=== PATIENT | male | born 1975 | race Hispanic/Latino ===

== ENCOUNTER 2020-02-06 16:51 | Inpatient (IN) | payer BC, OTHER ==
[~2020-02-06] VITALS: Ht 175.3 cm; Wt 90.7 kg
[2020-02-06] MEDS ORDERED: ACETAMINOPHEN 325 MG TAB ONE (17:11)
[2020-02-06 17:38] LABS: EOSINOPHILS % (AUTO) 1.4 % (0.0-8.0); HEMATOCRIT 39.2 % (42-54); LYMPHOCYTES % (AUTO) 5.2 % (21.0-51.0); MEAN CORPUSCULAR HGB CONC 31.9 g/dL (32.0-36.0); MEAN CORPUSCULAR VOLUME 78.2 fL (79-99); MONOCYTES % (AUTO) 6.6 % (3.0-13.0); NEUTROPHILS % (AUTO) 86.5 % (40.0-77.0); PLATELET COUNT (AUTO) 252 K/uL (130-400); RED BLOOD CELL COUNT(AUTO) 5.01 MIL/uL (4.50-6.20); RED CELL DISTRIBUTION WIDTH 17.4 % (11.0-15.5); WHITE BLOOD COUNT (AUTO) 6.4 K/uL (4.8-10.8)
[2020-02-06 17:50] LABS: INR 0.98 (0.85-1.15); PARTIAL THROMBOPLASTIN TIME 27.7 SEC (26.3-35.5); PROTHROMBIN TIME 10.6 SEC (9.6-11.6)
[2020-02-06 17:57] LABS: B-TYPE NATRIURETIC PEPTIDE 18 pg/mL (0-100)
[2020-02-06 18:22] LABS: CREATININE 1.3 mg/dL (0.5-1.5); POTASSIUM 3.9 mmol/L (3.5-5.1)
[2020-02-06 18:26] LABS: ALBUMIN 3.5 g/dL (3.5-5.0); BILIRUBIN,TOTAL 0.2 mg/dL (0.2-1.0); CRP QUANTITATIVE 85.9 mg/L (0.00-9.0); TOTAL PROTEIN, SERUM 7.9 g/dL (6.0-8.3)
[2020-02-06] MEDS ORDERED: LORAZEPAM 2 MG/ML 1 ML VIAL ONE (21:38)
[2020-02-06] MEDS ORDERED: DOXYCYCLINE 100MG+NS 250ML IV SCH (22:45)
[2020-02-06] MEDS ORDERED: ERGOCALCIFEROL (VITAMIN D2) 50,000 UNIT CAPSULE PO ONE (22:45)
[2020-02-06] MEDS ORDERED: GUAIFENESIN-DM 200/20 MG 10 ML PO PRN (23:30)
[2020-02-06] MEDS ORDERED: ONDANSETRON HCL 4 MG/2 ML VIAL IV PRN (23:30)
[2020-02-06] MEDS ORDERED: ASPIRIN 325MG EC TAB 325 MG TABLET.DR PO SCH (23:30)
[2020-02-06] MEDS ORDERED: ACETAMINOPHEN 325 MG TAB PO PRN ×2 (23:30)
[2020-02-07 00:26] LABS: ABG BASE EXCESS 0.5 mmol/L (-2.0-3.0); ABG HCO3 23.4 mmol/L (21.0-28.0); ABG OXYGEN SATURATION 95.6 % (95.0-99.0); ABG PCO2 33 mmHg (35-48)
[2020-02-07] MEDS ORDERED: ERGOCALCIFEROL (VITAMIN D2) 50,000 UNIT CAPSULE ONE (01:09)
[2020-02-07] MEDS ORDERED: DOXYCYCLINE HYCLATE 100 MG TABLET PO ONE ×2 (01:09→11:04)
[2020-02-07] MEDS ORDERED: ASPIRIN 325 MG TABLET ONE (01:10)
[2020-02-07] MEDS ORDERED: CEFTRIAXONE SODIUM 1 GM ONE ×2 (01:10→11:04)
[2020-02-07] MEDS ORDERED: ASPIRIN 325MG EC TAB 325 MG TABLET.DR PO ONE (01:39)
[2020-02-07] MEDS ORDERED: NITROGLYCERIN 1GM/1 INCH PACKET TD ONE ×2 (02:11→21:50)
[2020-02-07] MEDS ORDERED: NITROGLYCERIN 1GM/1 INCH PACKET TD SCH (06:00)
[2020-02-07 06:19] LABS: HEMATOCRIT 39.4 % (42-54); LYMPHOCYTES % (AUTO) 18.2 % (21.0-51.0); MEAN CORPUSCULAR HEMOGLOBIN 25.5 pg (27.0-33.0); MEAN CORPUSCULAR HGB CONC 32.5 g/dL (32.0-36.0); MEAN CORPUSCULAR VOLUME 78.6 fL (79-99); MONOCYTES % (AUTO) 7.6 % (3.0-13.0); NEUTROPHILS % (AUTO) 73.9 % (40.0-77.0); PLATELET COUNT (AUTO) 262 K/uL (130-400); RED BLOOD CELL COUNT(AUTO) 5.01 MIL/uL (4.50-6.20); RED CELL DISTRIBUTION WIDTH 17.8 % (11.0-15.5); WHITE BLOOD COUNT (AUTO) 5.9 K/uL (4.8-10.8)
[2020-02-07 07:29] LABS: ALBUMIN 3.2 g/dL (3.5-5.0); BILIRUBIN,TOTAL 0.3 mg/dL (0.2-1.0); CRP QUANTITATIVE 89.4 mg/L (0.00-9.0); POTASSIUM 3.3 mmol/L (3.5-5.1); TOTAL PROTEIN, SERUM 7.2 g/dL (6.0-8.3)
[2020-02-07 07:38] LABS: TROPONIN I 0.06 ng/mL (0.00-0.06)
[2020-02-07] MEDS ORDERED: ASCORBIC ACID 500 MG TAB ONE ×2 (08:08→13:00)
[2020-02-07] MEDS ORDERED: ZINC SULFATE 220 CAPSULE ONE (08:09)
[2020-02-07] MEDS ORDERED: METHYLPREDNISOLONE SOD SUCC 40MG/ML 1ML ONE ×2 (08:09→16:19)
[2020-02-07] MEDS ORDERED: FAMOTIDINE/PF 20 MG/2 ML VIAL IV ONE ×2 (08:10→21:51)
[2020-02-07] MEDS ORDERED: ENOXAPARIN SODIUM 60 MG/0.6 ML SQ ONE (08:42)
[2020-02-07] MEDS: ASPIRIN 81MG TAB.CHEW PO SCH (09:00)
[2020-02-07] MEDS: FAMOTIDINE/PF 20 MG/2 ML VIAL IV SCH ×2 (09:00→21:00)
[2020-02-07] MEDS: ASCORBIC ACID 500 MG TAB PO SCH (09:00)
[2020-02-07] MEDS: ZINC SULFATE 220 CAPSULE PO SCH (09:00)
[2020-02-07] MEDS: ENOXAPARIN SODIUM 40 MG/0.4 ML SYRINGE SQ SCH (09:00)
[2020-02-07] MEDS: METHYLPREDNISOLONE SOD SUCC 40MG/ML 1ML IVP SCH ×2 (09:00→17:00)
[2020-02-07] MEDS ORDERED: ACETAMINOPHEN 325 MG TAB ONE (09:11)
[2020-02-07] MEDS ORDERED: SODIUM CHLORIDE 0.9% 100 ML IV ONE (11:09)
[2020-02-07] MEDS ORDERED: CEFTRIAXONE SODIUM 1 GM IVP SCH (13:00)
[2020-02-07] MEDS ORDERED: DOXYCYCLINE 100MG+NS 250ML 250 ML IV SCH (13:00)
[2020-02-07] MEDS ORDERED: INSULIN HUMULIN R 100 UNIT/ML 3ML ONE ×2 (17:45→22:17)
[2020-02-07] MEDS: FUROSEMIDE 10 MG/ML 2ML VIAL IV SCH (18:00)
[2020-02-07] MEDS ORDERED: DOXYCYCLINE 100MG+NS 250ML 250 ML IV ONE (21:51)
[2020-02-07] MEDS ORDERED: ASPIRIN 81MG TAB.CHEW ONE (21:52)
[2020-02-07] MEDS ORDERED: FUROSEMIDE 10 MG/ML 2ML VIAL ONE (21:53)
[2020-02-08] MEDS ORDERED: CEFTRIAXONE SODIUM 1 GM ONE (00:05)
[2020-02-08] MEDS ORDERED: METHYLPREDNISOLONE SOD SUCC 40MG/ML 1ML ONE ×4 (00:06→21:30)
[2020-02-08] MEDS: METHYLPREDNISOLONE SOD SUCC 40MG/ML 1ML IVP SCH ×3 (01:00→17:00)
[2020-02-08 04:56] LABS: HEMATOCRIT 40.4 % (42-54); LYMPHOCYTES % (AUTO) 3.9 % (21.0-51.0); MEAN CORPUSCULAR HGB CONC 32.2 g/dL (32.0-36.0); MEAN CORPUSCULAR VOLUME 77.7 fL (79-99); MONOCYTES % (AUTO) 3.3 % (3.0-13.0); NEUTROPHILS % (AUTO) 92.5 % (40.0-77.0); PLATELET COUNT (AUTO) 269 K/uL (130-400); RED CELL DISTRIBUTION WIDTH 17.1 % (11.0-15.5); WHITE BLOOD COUNT (AUTO) 10.8 K/uL (4.8-10.8)
[2020-02-08 05:26] LABS: ALBUMIN 3.1 g/dL (3.5-5.0); BILIRUBIN,TOTAL 0.5 mg/dL (0.2-1.0); CREATININE 0.9 mg/dL (0.5-1.5); CRP QUANTITATIVE 154.6 mg/L (0.00-9.0); POTASSIUM 4.1 mmol/L (3.5-5.1); TOTAL PROTEIN, SERUM 7.5 g/dL (6.0-8.3)
[2020-02-08] MEDS ORDERED: NITROGLYCERIN 1GM/1 INCH PACKET TD ONE ×2 (05:34→07:29)
[2020-02-08] MEDS: FUROSEMIDE 10 MG/ML 2ML VIAL IV SCH ×2 (06:00→18:00)
[2020-02-08] MEDS ORDERED: ASPIRIN 81MG TAB.CHEW ONE (07:28)
[2020-02-08] MEDS ORDERED: DOXYCYCLINE HYCLATE 100 MG TABLET PO ONE (07:28)
[2020-02-08] MEDS ORDERED: ASCORBIC ACID 500 MG TAB ONE (07:28)
[2020-02-08] MEDS ORDERED: FUROSEMIDE 10 MG/ML 2ML VIAL ONE (07:29)
[2020-02-08] MEDS ORDERED: ZINC SULFATE 220 CAPSULE ONE (07:29)
[2020-02-08] MEDS ORDERED: ENOXAPARIN SODIUM 40 MG/0.4 ML SYRINGE SQ ONE (07:29)
[2020-02-08] MEDS ORDERED: FAMOTIDINE/PF 20 MG/2 ML VIAL IV ONE ×2 (07:30→21:30)
[2020-02-08] MEDS: ENOXAPARIN SODIUM 40 MG/0.4 ML SYRINGE SQ SCH (09:00)
[2020-02-08] MEDS: ASPIRIN 81MG TAB.CHEW PO SCH (09:00)
[2020-02-08] MEDS: ZINC SULFATE 220 CAPSULE PO SCH (09:00)
[2020-02-08] MEDS: FAMOTIDINE/PF 20 MG/2 ML VIAL IV SCH ×2 (09:00→21:00)
[2020-02-08] MEDS: ASCORBIC ACID 500 MG TAB PO SCH (09:00)
[2020-02-08] MEDS ORDERED: INSULIN HUMULIN R 100 UNIT/ML 3ML ONE ×2 (10:29→17:26)
[2020-02-08] MEDS ORDERED: REMDESIVIR (INVESTIGATIONAL) 200 MG in SODIUM CHLORIDE 0.9% 250 ML IV SCH (16:15)
[2020-02-08] MEDS: AZITHROMYCIN 500MG+NS 250ML 250 ML IV SCH (16:30)
[2020-02-08] MEDS: ZOSYN 3.375GM+NS 50ML 50 ML IV SCH (16:30)
[2020-02-08] MEDS ORDERED: ZOSYN 3.375GM+NS 50ML 50 ML IV ONE (17:07)
[2020-02-08] MEDS ORDERED: ACETAMINOPHEN 325 MG TAB ONE (17:07)
[2020-02-08] MEDS ORDERED: AZITHROMYCIN 500MG+NS 250ML 250 ML IV ONE (17:07)
[2020-02-09] MEDS ORDERED: INSULIN HUMULIN R 100 UNIT/ML 3ML ONE ×2 (00:06→12:21)
[2020-02-09] MEDS: ZOSYN 3.375GM+NS 50ML 50 ML IV SCH ×3 (00:30→16:30)
[2020-02-09] MEDS: METHYLPREDNISOLONE SOD SUCC 40MG/ML 1ML IVP SCH ×2 (01:00→09:00)
[2020-02-09] MEDS ORDERED: LORAZEPAM 2 MG/ML 1 ML VIAL ONE (01:22)
[2020-02-09 04:30] LABS: ABG BASE EXCESS 3.8 mmol/L (-2.0-3.0); ABG OXYGEN SATURATION 92.5 % (95.0-99.0); ABG PCO2 41 mmHg (35-48)
[2020-02-09 04:43] LABS: BASOPHILS % (AUTO) 0.1 % (0.0-5.0); LYMPHOCYTES % (AUTO) 3.1 % (21.0-51.0); MEAN CORPUSCULAR HGB CONC 32.2 g/dL (32.0-36.0); MEAN CORPUSCULAR VOLUME 77.8 fL (79-99); MONOCYTES % (AUTO) 3.1 % (3.0-13.0); PLATELET COUNT (AUTO) 317 K/uL (130-400); RED BLOOD CELL COUNT(AUTO) 5.27 MIL/uL (4.50-6.20); RED CELL DISTRIBUTION WIDTH 17.1 % (11.0-15.5); WHITE BLOOD COUNT (AUTO) 14.4 K/uL (4.8-10.8)
[2020-02-09] MEDS ORDERED: METHYLPREDNISOLONE SOD SUCC 40MG/ML 1ML ONE ×3 (04:43→20:10)
[2020-02-09] MEDS ORDERED: ZOSYN 3.375GM+NS 50ML 50 ML IV ONE ×3 (04:46→20:11)
[2020-02-09 05:14] LABS: ALBUMIN 3.1 g/dL (3.5-5.0); BILIRUBIN,TOTAL 0.5 mg/dL (0.2-1.0); CREATININE 0.9 mg/dL (0.5-1.5); POTASSIUM 4.1 mmol/L (3.5-5.1)
[2020-02-09] MEDS ORDERED: FUROSEMIDE 10 MG/ML 2ML VIAL ONE ×2 (05:15→20:10)
[2020-02-09 05:34] LABS: HEMOGLOBIN A1C 7.2 % (4.0-6.0)
[2020-02-09] MEDS: FUROSEMIDE 10 MG/ML 2ML VIAL IV SCH ×2 (06:00→18:00)
[2020-02-09 06:22] LABS: CRP QUANTITATIVE 197.2 mg/L (0.00-9.0)
[2020-02-09] MEDS: [UNRECOGNIZED DRUG - OTHER] MISC SCH ×3 (07:15→23:15)
[2020-02-09] MEDS: INSULIN HUMULIN R 100 UNIT/ML 3ML SQ SCH ×4 (07:30→21:00)
[2020-02-09] MEDS ORDERED: ASCORBIC ACID 500 MG TAB ONE (07:38)
[2020-02-09] MEDS ORDERED: ZINC SULFATE 220 CAPSULE ONE (07:38)
[2020-02-09] MEDS ORDERED: ASPIRIN 81MG TAB.CHEW ONE (07:38)
[2020-02-09] MEDS ORDERED: ENOXAPARIN SODIUM 40 MG/0.4 ML SYRINGE SQ ONE (07:38)
[2020-02-09] MEDS ORDERED: FAMOTIDINE/PF 20 MG/2 ML VIAL IV ONE ×2 (07:39→20:23)
[2020-02-09] MEDS: ZINC SULFATE 220 CAPSULE PO SCH (09:00)
[2020-02-09] MEDS: ASCORBIC ACID 500 MG TAB PO SCH (09:00)
[2020-02-09] MEDS: ASPIRIN 81MG TAB.CHEW PO SCH (09:00)
[2020-02-09] MEDS ORDERED: PHARMACY COMMUNICATION**REMDESIVIR MISC SCH (09:00)
[2020-02-09] MEDS: FAMOTIDINE/PF 20 MG/2 ML VIAL IV SCH ×2 (09:00→21:00)
[2020-02-09] MEDS ORDERED: INSULIN GLARGINE 100 UNITS/ML 10 ML VIAL SQ SCH (09:00)
[2020-02-09] MEDS: ENOXAPARIN SODIUM 40 MG/0.4 ML SYRINGE SQ SCH (09:00)
[2020-02-09] MEDS ORDERED: REMDESIVIR (INVESTIGATIONAL) 100 MG in SODIUM CHLORIDE 0.9% 250 ML IV SCH (09:00)
[2020-02-09] MEDS ORDERED: FAMOTIDINE 20MG TAB 20 MG TAB ONE (09:58)
[2020-02-09] MEDS: AZITHROMYCIN 500MG+NS 250ML 250 ML IV SCH (16:30)
[2020-02-09] MEDS ORDERED: REMDESIVIR (INVESTIGATIONAL) 200 MG in SODIUM CHLORIDE 0.9% 250 ML IV ONE (17:30)
[2020-02-09] MEDS ORDERED: AZITHROMYCIN 500MG+NS 250ML 250 ML IV ONE (20:22)
[2020-02-09] MEDS ORDERED: ALBUTEROL INHALER 90MCG/INH IH ONE (20:22)
[2020-02-10] MEDS: ZOSYN 3.375GM+NS 50ML 50 ML IV SCH ×3 (00:30→17:57)
[2020-02-10] MEDS: METHYLPREDNISOLONE SOD SUCC 40MG/ML 1ML IVP SCH ×4 (01:00→18:41)
[2020-02-10] MEDS ORDERED: METHYLPREDNISOLONE SOD SUCC 125MG/2ML VIAL ONE (04:37)
[2020-02-10] MEDS ORDERED: ZOSYN 3.375GM+NS 50ML 0 ML IV ONE (04:37)
[2020-02-10 04:55] LABS: ABG BASE EXCESS 1.5 mmol/L (-2.0-3.0); ABG HCO3 24.9 mmol/L (21.0-28.0); ABG OXYGEN SATURATION 91.4 % (95.0-99.0); ABG PCO2 36 mmHg (35-48)
[2020-02-10] MEDS ORDERED: ALPRAZOLAM 0.25 MG TABLET ONE (05:54)
[2020-02-10] MEDS: FUROSEMIDE 10 MG/ML 2ML VIAL IV SCH ×2 (06:00→17:55)
[2020-02-10 06:03] LABS: HEMATOCRIT 40.7 % (42-54); LYMPHOCYTES % (AUTO) 5.9 % (21.0-51.0); MEAN CORPUSCULAR HEMOGLOBIN 24.7 pg (27.0-33.0); MEAN CORPUSCULAR HGB CONC 31.7 g/dL (32.0-36.0); MONOCYTES % (AUTO) 3.3 % (3.0-13.0); NEUTROPHILS % (AUTO) 90.1 % (40.0-77.0); PLATELET COUNT (AUTO) 319 K/uL (130-400); RED BLOOD CELL COUNT(AUTO) 5.22 MIL/uL (4.50-6.20); RED CELL DISTRIBUTION WIDTH 16.9 % (11.0-15.5); WHITE BLOOD COUNT (AUTO) 10.5 K/uL (4.8-10.8)
[2020-02-10 06:36] LABS: ALBUMIN 2.7 g/dL (3.5-5.0); BILIRUBIN,DIRECT 0.2 mg/dL (0.0-0.3); BILIRUBIN,TOTAL 0.6 mg/dL (0.2-1.0); CREATININE 0.8 mg/dL (0.5-1.5); POTASSIUM 3.9 mmol/L (3.5-5.1); TOTAL PROTEIN, SERUM 7.4 g/dL (6.0-8.3)
[2020-02-10] MEDS: [UNRECOGNIZED DRUG - OTHER] MISC SCH ×3 (07:15→23:15)
[2020-02-10] MEDS: INSULIN HUMULIN R 100 UNIT/ML 3ML SQ SCH ×4 (07:30→21:36)
[2020-02-10] MEDS ORDERED: ZINC SULFATE 220 CAPSULE ONE (08:18)
[2020-02-10] MEDS ORDERED: ASPIRIN 81MG TAB.CHEW ONE (08:18)
[2020-02-10] MEDS ORDERED: ENOXAPARIN SODIUM 40 MG/0.4 ML SYRINGE SQ ONE (08:19)
[2020-02-10] MEDS ORDERED: FAMOTIDINE/PF 20 MG/2 ML VIAL IV ONE (08:19)
[2020-02-10] MEDS: ASPIRIN 81MG TAB.CHEW PO SCH (09:00)
[2020-02-10] MEDS: ZINC SULFATE 220 CAPSULE PO SCH (09:00)
[2020-02-10] MEDS: ENOXAPARIN SODIUM 40 MG/0.4 ML SYRINGE SQ SCH (09:00)
[2020-02-10] MEDS: ASCORBIC ACID 500 MG TAB PO SCH (09:00)
[2020-02-10] MEDS: FAMOTIDINE/PF 20 MG/2 ML VIAL IV SCH ×2 (09:00→21:33)
[2020-02-10 11:10] LABS: CRP QUANTITATIVE 129.6 mg/L (0.00-9.0)
[2020-02-10] MEDS ORDERED: METHYLPREDNISOLONE SOD SUCC 40MG/ML 1ML ONE (11:24)
[2020-02-10] MEDS ORDERED: ZOSYN 3.375 GM IV ONE (11:25)
[2020-02-10] MEDS ORDERED: [UNRECOGNIZED DRUG - OTHER] IV ONE (11:25)
[2020-02-10] MEDS ORDERED: INSULIN HUMULIN R 100 UNIT/ML 3ML ONE (12:17)
[2020-02-10] MEDS ORDERED: REMDESIVIR (INVESTIGATIONAL) 100 MG in SODIUM CHLORIDE 0.9% 250 ML IV SCH (17:30)
[2020-02-10 19:00] VITALS: BP 135/80
[2020-02-10 20:00] VITALS: BP 121/76
[2020-02-10] MEDS ORDERED: INSULIN GLARGINE 100 UNITS/ML 10 ML VIAL SQ SCH (21:00)
[2020-02-10] MEDS: ALPRAZOLAM 0.25 MG TABLET PO PRN (21:34)
[2020-02-10] MEDS: AZITHROMYCIN 500MG+NS 250ML 250 ML IV SCH (23:58)
[2020-02-11 00:19] VITALS: BP 126/94
[2020-02-11] MEDS: METHYLPREDNISOLONE SOD SUCC 40MG/ML 1ML IVP SCH ×3 (01:00→17:17)
[2020-02-11] MEDS: ZOSYN 3.375GM+NS 50ML 50 ML IV SCH ×3 (03:21→21:00)
[2020-02-11 03:24] VITALS: BP 134/90
[2020-02-11 04:25] LABS: ABG HCO3 32.2 mmol/L (21.0-28.0); ABG OXYGEN SATURATION 96.7 % (95.0-99.0); ABG PCO2 47 mmHg (35-48)
[2020-02-11] MEDS: [UNRECOGNIZED DRUG - OTHER] MISC SCH ×3 (05:52→23:15)
[2020-02-11] MEDS: INSULIN HUMULIN R 100 UNIT/ML 3ML SQ SCH ×4 (05:53→21:45)
[2020-02-11] MEDS: FUROSEMIDE 10 MG/ML 2ML VIAL IV SCH ×2 (06:25→17:17)
[2020-02-11 06:38] LABS: BASOPHILS % (AUTO) 0.1 % (0.0-5.0); LYMPHOCYTES % (AUTO) 6.6 % (21.0-51.0); MEAN CORPUSCULAR HEMOGLOBIN 25.7 pg (27.0-33.0); MEAN CORPUSCULAR HGB CONC 32.3 g/dL (32.0-36.0); MEAN CORPUSCULAR VOLUME 79.4 fL (79-99); MONOCYTES % (AUTO) 2.9 % (3.0-13.0); NEUTROPHILS % (AUTO) 89.9 % (40.0-77.0); PLATELET COUNT (AUTO) 319 K/uL (130-400); RED BLOOD CELL COUNT(AUTO) 4.91 MIL/uL (4.50-6.20); RED CELL DISTRIBUTION WIDTH 16.5 % (11.0-15.5); WHITE BLOOD COUNT (AUTO) 10.2 K/uL (4.8-10.8)
[2020-02-11 06:58] LABS: ALBUMIN 2.5 g/dL (3.5-5.0); BILIRUBIN,TOTAL 0.5 mg/dL (0.2-1.0); POTASSIUM 4.4 mmol/L (3.5-5.1); TOTAL PROTEIN, SERUM 6.8 g/dL (6.0-8.3)
[2020-02-11] MEDS: FAMOTIDINE/PF 20 MG/2 ML VIAL IV SCH ×2 (08:18→21:44)
[2020-02-11] MEDS: ZINC SULFATE 220 CAPSULE PO SCH (08:20)
[2020-02-11] MEDS: ASCORBIC ACID 500 MG TAB PO SCH (08:20)
[2020-02-11] MEDS: ENOXAPARIN SODIUM 40 MG/0.4 ML SYRINGE SQ SCH ×2 (08:21→21:46)
[2020-02-11] MEDS: ASPIRIN 81MG TAB.CHEW PO SCH (08:21)
[2020-02-11 08:42] VITALS: BP 122/80
[2020-02-11] MEDS ORDERED: ENOXAPARIN SODIUM 40 MG/0.4 ML SYRINGE SQ SCH (09:00)
[2020-02-11 11:11] VITALS: BP 134/91
[2020-02-11 16:56] VITALS: BP 145/88
[2020-02-11] MEDS ORDERED: BENZONATATE 100 MG CAPSULE PO PRN (17:30)
[2020-02-11] MEDS ORDERED: GUAIFENESIN-CODEINE 5 ML SYRUP PO PRN (17:30)
[2020-02-11 19:30] VITALS: BP 136/89
[2020-02-11] MEDS: GUAIFENESIN 600 MG TABLET.ER PO SCH (21:44)
[2020-02-11] MEDS: INSULIN GLARGINE 100 UNITS/ML 10 ML VIAL SQ SCH (21:46)
[2020-02-11] MEDS: ALPRAZOLAM 0.25 MG TABLET PO PRN (21:47)
[2020-02-11] MEDS: AZITHROMYCIN 500MG+NS 250ML 250 ML IV SCH (23:55)
[2020-02-12] VITALS: BP 126/86
[2020-02-12] MEDS: METHYLPREDNISOLONE SOD SUCC 40MG/ML 1ML IVP SCH ×3 (01:00→17:29)
[2020-02-12] MEDS: ZOSYN 3.375GM+NS 50ML 50 ML IV SCH ×3 (03:41→21:00)
[2020-02-12 04:00] VITALS: BP 127/62
[2020-02-12 05:33] LABS: BASOPHILS % (AUTO) 0.2 % (0.0-5.0); HEMATOCRIT 38.5 % (42-54); LYMPHOCYTES % (AUTO) 5.4 % (21.0-51.0); MEAN CORPUSCULAR HEMOGLOBIN 24.9 pg (27.0-33.0); MEAN CORPUSCULAR HGB CONC 31.9 g/dL (32.0-36.0); MEAN CORPUSCULAR VOLUME 77.9 fL (79-99); MONOCYTES % (AUTO) 2.5 % (3.0-13.0); NEUTROPHILS % (AUTO) 91.3 % (40.0-77.0); PLATELET COUNT (AUTO) 363 K/uL (130-400); RED BLOOD CELL COUNT(AUTO) 4.94 MIL/uL (4.50-6.20); RED CELL DISTRIBUTION WIDTH 15.9 % (11.0-15.5); WHITE BLOOD COUNT (AUTO) 10.8 K/uL (4.8-10.8)
[2020-02-12] MEDS: [UNRECOGNIZED DRUG - OTHER] MISC SCH ×3 (05:57→22:31)
[2020-02-12 06:02] LABS: ALBUMIN 2.5 g/dL (3.5-5.0); BILIRUBIN,TOTAL 0.5 mg/dL (0.2-1.0); CREATININE 0.8 mg/dL (0.5-1.5); CRP QUANTITATIVE 33.4 mg/L (0.00-9.0); TOTAL PROTEIN, SERUM 6.8 g/dL (6.0-8.3)
[2020-02-12] MEDS: FUROSEMIDE 10 MG/ML 2ML VIAL IV SCH ×2 (06:26→18:16)
[2020-02-12] MEDS: INSULIN HUMULIN R 100 UNIT/ML 3ML SQ SCH ×5 (06:33→21:00)
[2020-02-12] MEDS: ASPIRIN 81MG TAB.CHEW PO SCH (07:37)
[2020-02-12] MEDS: ZINC SULFATE 220 CAPSULE PO SCH ×2 (07:37→09:00)
[2020-02-12] MEDS: GUAIFENESIN 600 MG TABLET.ER PO SCH ×2 (07:39→22:10)
[2020-02-12] MEDS: ALPRAZOLAM 0.25 MG TABLET PO PRN ×2 (07:39→23:21)
[2020-02-12] MEDS: ASCORBIC ACID 500 MG TAB PO SCH (07:40)
[2020-02-12] MEDS: FAMOTIDINE/PF 20 MG/2 ML VIAL IV SCH ×2 (07:40→22:10)
[2020-02-12] MEDS: INSULIN GLARGINE 100 UNITS/ML 10 ML VIAL SQ SCH ×2 (07:45→21:00)
[2020-02-12 08:00] VITALS: BP 130/61
[2020-02-12 11:00] VITALS: BP 130/77
[2020-02-12] MEDS: ENOXAPARIN SODIUM 40 MG/0.4 ML SYRINGE SQ SCH ×2 (11:04→22:12)
[2020-02-12 16:00] VITALS: BP 144/88
[2020-02-12] MEDS: AZITHROMYCIN 500MG+NS 250ML 250 ML IV SCH (22:00)
[2020-02-12 22:19] VITALS: BP 123/81
[2020-02-12] MEDS ORDERED: SODIUM CHLORIDE 0.9% 500ML 500 ML IV ONE (23:32)
[2020-02-13 00:02] VITALS: BP 137/82
[2020-02-13] MEDS: METHYLPREDNISOLONE SOD SUCC 40MG/ML 1ML IVP SCH ×3 (01:09→17:07)
[2020-02-13] MEDS: ZOSYN 3.375GM+NS 50ML 50 ML IV SCH ×3 (04:23→20:49)
[2020-02-13 05:01] LABS: ABG BASE EXCESS 6.2 mmol/L (-2.0-3.0); ABG HCO3 30.7 mmol/L (21.0-28.0); ABG OXYGEN SATURATION 96.6 % (95.0-99.0); ABG PCO2 44 mmHg (35-48)
[2020-02-13] MEDS: FUROSEMIDE 10 MG/ML 2ML VIAL IV SCH ×2 (05:24→17:09)
[2020-02-13] MEDS: [UNRECOGNIZED DRUG - OTHER] MISC SCH ×3 (05:24→20:49)
[2020-02-13] MEDS: INSULIN HUMULIN R 100 UNIT/ML 3ML SQ SCH ×7 (05:41→20:48)
[2020-02-13 05:46] VITALS: BP 133/87
[2020-02-13 06:40] LABS: ALBUMIN 2.8 g/dL (3.5-5.0); BASOPHILS % (AUTO) 0.1 % (0.0-5.0); BILIRUBIN,TOTAL 0.6 mg/dL (0.2-1.0); CREATININE 0.8 mg/dL (0.5-1.5); CRP QUANTITATIVE 19.6 mg/L (0.00-9.0); HEMATOCRIT 40.5 % (42-54); LYMPHOCYTES % (AUTO) 5.1 % (21.0-51.0); MEAN CORPUSCULAR HEMOGLOBIN 25.4 pg (27.0-33.0); MEAN CORPUSCULAR HGB CONC 31.6 g/dL (32.0-36.0); MEAN CORPUSCULAR VOLUME 80.4 fL (79-99); MONOCYTES % (AUTO) 1.7 % (3.0-13.0); NEUTROPHILS % (AUTO) 92.6 % (40.0-77.0); PLATELET COUNT (AUTO) 384 K/uL (130-400); POTASSIUM 4.2 mmol/L (3.5-5.1); RED BLOOD CELL COUNT(AUTO) 5.04 MIL/uL (4.50-6.20); RED CELL DISTRIBUTION WIDTH 15.7 % (11.0-15.5); TOTAL PROTEIN, SERUM 7.1 g/dL (6.0-8.3)
[2020-02-13] MEDS ORDERED: MUPIROCIN OINTMENT 22 GM TUBE TP PRN (07:00)
[2020-02-13 08:45] VITALS: BP 116/74
[2020-02-13] MEDS: ZINC SULFATE 220 CAPSULE PO SCH (09:44)
[2020-02-13] MEDS: FAMOTIDINE/PF 20 MG/2 ML VIAL IV SCH ×2 (09:44→20:48)
[2020-02-13] MEDS: ALPRAZOLAM 0.25 MG TABLET PO PRN ×2 (09:44→20:54)
[2020-02-13] MEDS: ASCORBIC ACID 500 MG TAB PO SCH (09:45)
[2020-02-13] MEDS: GUAIFENESIN 600 MG TABLET.ER PO SCH ×2 (09:45→20:49)
[2020-02-13] MEDS: ASPIRIN 81MG TAB.CHEW PO SCH (09:46)
[2020-02-13] MEDS: ENOXAPARIN SODIUM 40 MG/0.4 ML SYRINGE SQ SCH ×2 (09:46→20:49)
[2020-02-13 11:00] VITALS: BP 109/75
[2020-02-13] MEDS: INSULIN GLARGINE 100 UNITS/ML 10 ML VIAL SQ SCH ×2 (11:59→20:50)
[2020-02-13] MEDS ORDERED: PHARMACY COMMUNICATION MISC SCH (15:45)
[2020-02-13 16:00] VITALS: BP 138/93
[2020-02-13] MEDS ORDERED: BACITRACIN 28.4 GM OINT TP PRN (18:45)
[2020-02-13 20:32] VITALS: BP 134/87
[2020-02-13] MEDS: AZITHROMYCIN 500MG+NS 250ML 250 ML IV SCH (22:00)
[2020-02-14 00:32] VITALS: BP 140/82
[2020-02-14] MEDS: METHYLPREDNISOLONE SOD SUCC 40MG/ML 1ML IVP SCH ×3 (01:04→17:15)
[2020-02-14 04:32] VITALS: BP 132/76
[2020-02-14 05:45] LABS: LACTATE DEHYDROGENASE 310 U/L (81-234)
[2020-02-14] MEDS: [UNRECOGNIZED DRUG - OTHER] MISC SCH ×3 (05:52→23:15)
[2020-02-14] MEDS: INSULIN HUMULIN R 100 UNIT/ML 3ML SQ SCH ×7 (05:52→21:00)
[2020-02-14] MEDS: FUROSEMIDE 10 MG/ML 2ML VIAL IV SCH ×2 (06:02→17:15)
[2020-02-14] MEDS: ZOSYN 3.375GM+NS 50ML 50 ML IV SCH ×3 (06:02→21:00)
[2020-02-14 08:00] VITALS: BP 133/87
[2020-02-14] MEDS: ZINC SULFATE 220 CAPSULE PO SCH (09:41)
[2020-02-14] MEDS: ASPIRIN 81MG TAB.CHEW PO SCH (09:41)
[2020-02-14] MEDS: GUAIFENESIN 600 MG TABLET.ER PO SCH ×2 (09:41→21:00)
[2020-02-14] MEDS: FAMOTIDINE/PF 20 MG/2 ML VIAL IV SCH ×2 (09:41→21:00)
[2020-02-14] MEDS: ASCORBIC ACID 500 MG TAB PO SCH (09:41)
[2020-02-14] MEDS: ALPRAZOLAM 0.25 MG TABLET PO PRN ×2 (09:41→23:08)
[2020-02-14] MEDS: ENOXAPARIN SODIUM 40 MG/0.4 ML SYRINGE SQ SCH ×2 (09:42→21:00)
[2020-02-14 11:00] VITALS: BP 148/80
[2020-02-14] MEDS: INSULIN GLARGINE 100 UNITS/ML 10 ML VIAL SQ SCH ×2 (11:09→21:00)
[2020-02-14 16:00] VITALS: BP 146/66
[2020-02-14 22:58] VITALS: BP 140/86
[2020-02-15 01:01] VITALS: BP 140/91
[2020-02-15] MEDS: AZITHROMYCIN 500MG+NS 250ML 250 ML IV SCH (02:00)
[2020-02-15] MEDS: METHYLPREDNISOLONE SOD SUCC 40MG/ML 1ML IVP SCH ×2 (02:00→08:37)
[2020-02-15] MEDS: [UNRECOGNIZED DRUG - OTHER] MISC SCH (05:09)
[2020-02-15] MEDS: INSULIN HUMULIN R 100 UNIT/ML 3ML SQ SCH ×4 (05:09→12:34)
[2020-02-15] MEDS: ZOSYN 3.375GM+NS 50ML 50 ML IV SCH (05:14)
[2020-02-15] MEDS: FUROSEMIDE 10 MG/ML 2ML VIAL IV SCH (05:14)
[2020-02-15 05:47] VITALS: BP 111/76
[2020-02-15 07:10] LABS: CRP QUANTITATIVE 14.7 mg/L (0.00-9.0)
[2020-02-15 08:00] VITALS: BP 129/91
[2020-02-15] MEDS: ZINC SULFATE 220 CAPSULE PO SCH (08:37)
[2020-02-15] MEDS: FAMOTIDINE/PF 20 MG/2 ML VIAL IV SCH (08:37)
[2020-02-15] MEDS: GUAIFENESIN 600 MG TABLET.ER PO SCH (08:37)
[2020-02-15] MEDS: ASPIRIN 81MG TAB.CHEW PO SCH (08:38)
[2020-02-15] MEDS: ENOXAPARIN SODIUM 40 MG/0.4 ML SYRINGE SQ SCH (08:38)
[2020-02-15] MEDS: ASCORBIC ACID 500 MG TAB PO SCH (08:38)
[2020-02-15] MEDS: INSULIN GLARGINE 100 UNITS/ML 10 ML VIAL SQ SCH (08:45)
[2020-02-15 11:30] VITALS: BP 148/92
== END 2020-02-15 14:00 | disposition home or self-care (01) | DRG 871 ==
LOC: EDH 16:51 → EDHIP 16:52 → 4CH 02-10 16:45
PROVIDERS: ADMIT Internal Medicine; ATTEND Internal Medicine
PROC: 30233K1 Transfusion of Nonautologous Frozen Plasma into Peripheral Vein, Percutaneous Approach (ICD-10-PCS; principal; 2020-02-12)
DX: A41.89 Other specified sepsis (principal); U07.1 COVID-19; J12.89 Other viral pneumonia; J96.01 Acute respiratory failure with hypoxia; E11.9 Type 2 diabetes mellitus without complications; I10 Essential (primary) hypertension; E66.9 Obesity, unspecified; M54.9 Dorsalgia, unspecified; R07.89 Other chest pain; F17.200 Nicotine dependence, unspecified, uncomplicated; Z68.29 Body mass index [BMI] 29.0-29.9, adult
CPT/HCPCS: 0099U; 36415; 36430; 36600; 71045; 71250; 80048; 80053; 80076; 82550; 82728; 82803; 82948; 83036; 83605; 83615; 83874; 83880; 84145; 84484; 85025; 85378; 85610; 85730; 86140; 86850; 86900; 86901; 86927; 93005; 94760; G0378; J0456; J0696; J1650; J1815; J1940; J2060; J2543; J2920; J2930; J3490; J7040; J7050; P9017; U0003

== ENCOUNTER 2021-05-02 18:54 | Inpatient (IN) | payer BC ==
[~2021-05-02] VITALS: Ht 175.3 cm; Wt 100.3 kg
[2021-05-02] MEDS ORDERED: MORPHINE 4 MG SYG IVP ONE (20:00)
[2021-05-02] MEDS ORDERED: ONDANSETRON 4MG TABLET PO ONE (20:00)
[2021-05-02] MEDS ORDERED: 0.9%NACL 1000ML 1,000 ML IV ONE (20:00)
[2021-05-02 20:14] LABS: BASOPHILS % (AUTO) 0.3 % (0.0-5.0); EOSINOPHILS % (AUTO) 2.8 % (0.0-8.0); HEMATOCRIT 39.5 % (42-54); LYMPHOCYTES % (AUTO) 30.2 % (21.0-51.0); MEAN CORPUSCULAR HEMOGLOBIN 27.2 pg (27.0-33.0); MEAN CORPUSCULAR HGB CONC 34.2 g/dL (32.0-36.0); MEAN CORPUSCULAR VOLUME 79.5 fL (79-99); MONOCYTES % (AUTO) 12.8 % (3.0-13.0); NEUTROPHILS % (AUTO) 53.1 % (40.0-77.0); PLATELET COUNT (AUTO) 252 K/uL (130-400); RED BLOOD CELL COUNT(AUTO) 4.97 MIL/uL (4.50-6.20); RED CELL DISTRIBUTION WIDTH 20.5 % (11.0-15.5); WHITE BLOOD COUNT (AUTO) 6.5 K/uL (4.8-10.8)
[2021-05-02] MEDS ORDERED: IOHEXOL-350 75 ML VIAL IV ONE (20:34)
[2021-05-02 20:59] LABS: CREATININE 1.3 mg/dL (0.5-1.5)
[2021-05-02 21:03] LABS: BILIRUBIN,TOTAL 0.2 mg/dL (0.2-1.0); TOTAL PROTEIN, SERUM 7.3 g/dL (6.0-8.3)
[2021-05-02 21:45] LABS: APPEARANCE,URINE Clear (CLEAR); BILIRUBIN,URINE Negative (NEGATIVE); COLOR,URINE Yellow (YELLOW); GLUCOSE, URINE (UA) Negative (NEGATIVE); KETONES,URINE Negative (NEGATIVE); LEUKOCYTE ESTERASE ,URINE Negative (NEGATIVE); NITRATE,URINE Negative (NEGATIVE); OCCULT BLOOD,URINE Negative (NEGATIVE); PH,URINE 5.5 (5.0-8.0); PROTEIN,URINE Negative (NEGATIVE); UROBILINOGEN,URINE 0.2 mg/dL (0.2-1.0)
[2021-05-02] MEDS ORDERED: LEVOFLOXACIN 500 MG/D5W 100 ML 100 ML IV SCH (23:00)
[2021-05-03 00:18] LABS: INR 1.03 (0.85-1.15); PROTHROMBIN TIME 11.2 SEC (9.6-11.6)
[2021-05-03] MEDS: METRONIDAZOLE 500MG/100ML BAG 100 ML IV SCH ×2 (00:43→08:50)
[2021-05-03 00:45] LABS: PARTIAL THROMBOPLASTIN TIME 20.5 SEC (26.3-35.5)
[2021-05-03] MEDS ORDERED: LISI20TA24 PO (00:45)
[2021-05-03] MEDS ORDERED: METF-446 PO (00:45)
[2021-05-03] MEDS ORDERED: FAMO20TA8 PO (00:46)
[2021-05-03] MEDS ORDERED: TRAM50TA4 PO (00:46)
[2021-05-03] MEDS ORDERED: HYDR-3421 PO (00:47)
[2021-05-03] MEDS ORDERED: OMEP20TA25 PO (00:48)
[2021-05-03] MEDS ORDERED: METO-391 PO (00:48)
[2021-05-03] MEDS ORDERED: OXYM30MI9 NS (00:50)
[2021-05-03] MEDS: LACTATED RINGERS 1000ML 1,000 ML IV SCH ×3 (00:56→11:38)
[2021-05-03] MEDS ORDERED: MORPHINE 2 MG SYG ONE ×2 (02:51→18:11)
[2021-05-03] MEDS: MORPHINE 4 MG SYG IV PRN ×2 (02:59→08:52)
[2021-05-03 05:50] LABS: BASOPHILS % (AUTO) 0.2 % (0.0-5.0); EOSINOPHILS % (AUTO) 3.4 % (0.0-8.0); HEMATOCRIT 38.5 % (42-54); LYMPHOCYTES % (AUTO) 25.3 % (21.0-51.0); MEAN CORPUSCULAR HEMOGLOBIN 26.8 pg (27.0-33.0); MEAN CORPUSCULAR HGB CONC 33.2 g/dL (32.0-36.0); MEAN CORPUSCULAR VOLUME 80.5 fL (79-99); MONOCYTES % (AUTO) 10.1 % (3.0-13.0); NEUTROPHILS % (AUTO) 60.7 % (40.0-77.0); PLATELET COUNT (AUTO) 210 K/uL (130-400); RED BLOOD CELL COUNT(AUTO) 4.78 MIL/uL (4.50-6.20); RED CELL DISTRIBUTION WIDTH 20.4 % (11.0-15.5); WHITE BLOOD COUNT (AUTO) 6.4 K/uL (4.8-10.8)
[2021-05-03 06:15] LABS: MAGNESIUM 1.4 mg/dL (1.80-2.40); PHOSPHORUS 2.6 mg/dL (2.5-4.9); POTASSIUM 4.6 mmol/L (3.5-5.1)
[2021-05-03 07:02] LABS: HEMOGLOBIN A1C 8.5 % (4.0-6.0)
[2021-05-03] MEDS: FAMOTIDINE 20MG VIAL IV SCH ×3 (08:51→20:54)
[2021-05-03] MEDS ORDERED: HYDROXYZINE 25 MG TABLET PO SCH (09:30)
[2021-05-03] MEDS ORDERED: OXYMETAZOLINE HCL SPRAY 15 ML BOTTLE NS SCH (09:30)
[2021-05-03] MEDS ORDERED: ZOSYN 3.375GM+NS 50ML 3.38 GM in 0.9%NACL 50ML 50 ML IV SCH (11:30)
[2021-05-03] MEDS: METOPROLOL SUCCINATE 50 MG TAB.SR.24H PO SCH (11:37)
[2021-05-03] MEDS: LISINOPRIL 20 MG TABLET PO SCH (11:37)
[2021-05-03] MEDS ORDERED: 0.9%NACL 50ML 50 ML IV ONE (11:43)
[2021-05-03] MEDS ORDERED: ZOSYN 3.375GM+NS 50ML 50 ML IV SCH (12:00)
[2021-05-03] MEDS ORDERED: DiphenhydrAMINE HCL 50 MG/ML VIAL ONE (12:30)
[2021-05-03] MEDS: MAGNESIUM 2GM PREMIX 50ML 50 ML IV SCH (13:47)
[2021-05-03] MEDS: METRONIDAZOLE 500MG/100ML BAG 100 ML IVPB SCH ×2 (14:00→20:54)
[2021-05-03 14:11] VITALS: BP 125/82
[2021-05-03] MEDS: LEVOFLOXACIN 500 MG/D5W 100 ML 100 ML IV SCH (14:54)
[2021-05-03 20:00] VITALS: BP 129/85
[2021-05-03] MEDS ORDERED: LISINOPRIL 20 MG TABLET PO SCH (21:00)
[2021-05-04] VITALS (7 sets, daily range): BP systolic 102–133; BP diastolic 72–83
[2021-05-04] MEDS: METRONIDAZOLE 500MG/100ML BAG 100 ML IVPB SCH ×3 (05:08→20:30)
[2021-05-04] MEDS ORDERED: MORPHINE 2 MG SYG ONE (05:09)
[2021-05-04] MEDS: LISINOPRIL 20 MG TABLET PO SCH (09:00)
[2021-05-04] MEDS: METOPROLOL SUCCINATE 50 MG TAB.SR.24H PO SCH (09:00)
[2021-05-04] MEDS ORDERED: METOPROLOL SUCCINATE 50 MG TAB.SR.24H PO SCH (09:00)
[2021-05-04] MEDS: FAMOTIDINE 20MG VIAL IV SCH ×2 (09:07→20:30)
[2021-05-04] MEDS: MORPHINE 4 MG SYG IV PRN ×2 (09:13→19:45)
[2021-05-04] MEDS: MAGNESIUM 2GM PREMIX 50ML 50 ML IV SCH (09:13)
[2021-05-04] MEDS: LACTATED RINGERS 1000ML 1,000 ML IV SCH ×2 (09:14→23:48)
[2021-05-04] MEDS ORDERED: ONDANSETRON 4MG INJ ONE (15:14)
[2021-05-04] MEDS: INSULIN HUMULIN R 100 UNIT/ML 3ML SQ SCH ×2 (16:20→20:30)
[2021-05-04 17:06] LABS: AMPHET/METH SCREEN,URINE NEGATIVE (NEGATIVE); BARBITURATE SCREEN, URINE NEGATIVE (NEGATIVE); BENZODIAZEPINES SCREEN,URINE NEGATIVE (NEGATIVE); CANNABINOID SCREEN,URINE POSITIVE (NEGATIVE); COCAINE SCREEN,URINE NEGATIVE (NEGATIVE); OPIATE SCREEN,URINE POSITIVE (NEGATIVE); PHENCYCLIDINE SCREEN,URINE NEGATIVE (NEGATIVE)
[2021-05-04] MEDS: LEVOFLOXACIN 500 MG/D5W 100 ML 100 ML IV SCH (18:11)
[2021-05-05] MEDS: ONDANSETRON 4MG INJ IVP PRN ×2 (00:06→14:47)
[2021-05-05] MEDS: MORPHINE 4 MG SYG IV PRN ×2 (00:07→14:51)
[2021-05-05 04:00] VITALS: BP 123/91
[2021-05-05 04:22] LABS: HEMATOCRIT 40.1 % (42-54); MEAN CORPUSCULAR HEMOGLOBIN 27.3 pg (27.0-33.0); MEAN CORPUSCULAR HGB CONC 33.7 g/dL (32.0-36.0); RED BLOOD CELL COUNT(AUTO) 4.95 MIL/uL (4.50-6.20); RED CELL DISTRIBUTION WIDTH 19.7 % (11.0-15.5); WHITE BLOOD COUNT (AUTO) 6.9 K/uL (4.8-10.8)
[2021-05-05] MEDS ORDERED: ONDANSETRON 4MG INJ IVP ONE (04:30)
[2021-05-05] MEDS ORDERED: METOCLOPRAMIDE 10 MG TABLET ONE (04:40)
[2021-05-05] MEDS ORDERED: PROMETHAZINE HCL 25 MG TABLET ONE (04:42)
[2021-05-05 04:52] LABS: ALBUMIN 2.6 g/dL (3.5-5.0); BILIRUBIN,TOTAL 0.4 mg/dL (0.2-1.0); CREATININE 1.1 mg/dL (0.5-1.5); TOTAL PROTEIN, SERUM 6.7 g/dL (6.0-8.3)
[2021-05-05] MEDS ORDERED: PROMETHAZINE HCL 25 MG TABLET PO SCH (05:00)
[2021-05-05] MEDS: METRONIDAZOLE 500MG/100ML BAG 100 ML IVPB SCH ×3 (05:00→21:01)
[2021-05-05] MEDS ORDERED: METOCLOPRAMIDE 10 MG TABLET PO SCH (05:00)
[2021-05-05] MEDS: INSULIN HUMULIN R 100 UNIT/ML 3ML SQ SCH ×4 (05:57→21:00)
[2021-05-05 07:42] VITALS: BP 135/82
[2021-05-05] MEDS: METOPROLOL SUCCINATE 50 MG TAB.SR.24H PO SCH (09:07)
[2021-05-05] MEDS: FAMOTIDINE 20MG VIAL IV SCH ×2 (09:07→21:02)
[2021-05-05] MEDS: LISINOPRIL 20 MG TABLET PO SCH (09:08)
[2021-05-05 10:53] VITALS: BP 116/82
[2021-05-05] MEDS: LACTATED RINGERS 1000ML 1,000 ML IV SCH (13:35)
[2021-05-05 16:00] VITALS: BP 102/68
[2021-05-05 20:19] VITALS: BP 103/64
[2021-05-05] MEDS ORDERED: ACETAMINOPHEN 325 MG TAB ONE (22:00)
[2021-05-05] MEDS: LEVOFLOXACIN 500 MG/D5W 100 ML 100 ML IV SCH (23:07)
[2021-05-05 23:45] VITALS: BP 113/79
[2021-05-06 04:09] VITALS: BP 111/72
[2021-05-06 05:00] LABS: HEMATOCRIT 39.1 % (42-54); MEAN CORPUSCULAR HEMOGLOBIN 27.7 pg (27.0-33.0); MEAN CORPUSCULAR VOLUME 81.3 fL (79-99); RED BLOOD CELL COUNT(AUTO) 4.81 MIL/uL (4.50-6.20); RED CELL DISTRIBUTION WIDTH 19.7 % (11.0-15.5); WHITE BLOOD COUNT (AUTO) 5.5 K/uL (4.8-10.8)
[2021-05-06] MEDS: ONDANSETRON 4MG INJ IVP PRN (05:09)
[2021-05-06] MEDS: METRONIDAZOLE 500MG/100ML BAG 100 ML IVPB SCH (05:09)
[2021-05-06] MEDS: MORPHINE 4 MG SYG IV PRN (05:10)
[2021-05-06 05:21] LABS: ALBUMIN 2.5 g/dL (3.5-5.0); BILIRUBIN,TOTAL 0.3 mg/dL (0.2-1.0); POTASSIUM 3.8 mmol/L (3.5-5.1); TOTAL PROTEIN, SERUM 6.5 g/dL (6.0-8.3)
[2021-05-06] MEDS: INSULIN HUMULIN R 100 UNIT/ML 3ML SQ SCH ×2 (07:30→11:29)
[2021-05-06 07:44] VITALS: BP 119/88
[2021-05-06] MEDS ORDERED: LEVO750T46 PO (07:50)
[2021-05-06] MEDS ORDERED: METR500T PO (07:50)
[2021-05-06] MEDS: LISINOPRIL 20 MG TABLET PO SCH (09:04)
[2021-05-06] MEDS: METOPROLOL SUCCINATE 50 MG TAB.SR.24H PO SCH (09:04)
[2021-05-06] MEDS: FAMOTIDINE 20MG VIAL IV SCH (09:04)
[2021-05-06] MEDS ORDERED: FLU VACC QS2021-22(6MOS UP)/PF 60 MCG/0.5 ML ML IM ONE (11:30)
[2021-05-06 11:59] VITALS: BP 119/76
== END 2021-05-06 14:00 | disposition home or self-care (01) | DRG 392 ==
LOC: EDH 18:54 → EDHIP 22:42 → 3BH 05-03 12:18
PROVIDERS: ADMIT Internal Medicine; ATTEND Internal Medicine
DX: K57.32 Diverticulitis of large intestine without perforation or abscess without bleeding (principal); E11.9 Type 2 diabetes mellitus without complications; I10 Essential (primary) hypertension; E78.5 Hyperlipidemia, unspecified; E78.00 Pure hypercholesterolemia, unspecified; K52.9 Noninfective gastroenteritis and colitis, unspecified; Z20.822 Contact with and (suspected) exposure to COVID-19; E66.01 Morbid (severe) obesity due to excess calories; Z68.32 Body mass index [BMI] 32.0-32.9, adult; Z23 Encounter for immunization; Z88.8 Allergy status to other drugs, medicaments and biological substances; Z91.041 Radiographic dye allergy status; Z87.891 Personal history of nicotine dependence
CPT/HCPCS: 36415; 71045; 74176; 80048; 80053; 80305; 81003; 82948; 83036; 83690; 83735; 84100; 84145; 85025; 85027; 85610; 85730; 86140; 86850; 86900; 86901; 87040; 87635; 93005; G0378; J1200; J1815; J1956; J2270; J2405; J2543; J3475; J3490; J7030; J7120; Q0162; Q0169; Q2035; Q9967

== ENCOUNTER 2021-05-12 14:29 | Emergency (ER) | payer BC ==
[~2021-05-12] VITALS: Ht 175.3 cm; Wt 97.5 kg
[~2021-05-12 14:29] MED LIST: HYDR-3421 PO; LEVO750T46 PO; LISI20TA24 PO; METF-446 PO; METO-391 PO; METR500T PO; OMEP20TA25 PO; OXYM30MI9 NS; TRAM50TA4 PO
[2021-05-12 14:31] VITALS: BP 127/96
[2021-05-12 15:00] LABS: BASOPHILS % (AUTO) 0.2 % (0.0-5.0); EOSINOPHILS % (AUTO) 0.9 % (0.0-8.0); LYMPHOCYTES % (AUTO) 13.4 % (21.0-51.0); MEAN CORPUSCULAR HEMOGLOBIN 27.4 pg (27.0-33.0); MEAN CORPUSCULAR HGB CONC 33.7 g/dL (32.0-36.0); MEAN CORPUSCULAR VOLUME 81.4 fL (79-99); MONOCYTES % (AUTO) 11.1 % (3.0-13.0); NEUTROPHILS % (AUTO) 73.8 % (40.0-77.0); PLATELET COUNT (AUTO) 338 K/uL (130-400); RED BLOOD CELL COUNT(AUTO) 4.67 MIL/uL (4.50-6.20); RED CELL DISTRIBUTION WIDTH 19.3 % (11.0-15.5); WHITE BLOOD COUNT (AUTO) 8.9 K/uL (4.8-10.8)
[2021-05-12 15:19] LABS: POTASSIUM 3.1 mmol/L (3.5-5.1)
[2021-05-12 15:24] LABS: ALBUMIN 2.5 g/dL (3.5-5.0); BILIRUBIN,TOTAL 0.4 mg/dL (0.2-1.0); TOTAL PROTEIN, SERUM 7.1 g/dL (6.0-8.3)
== END 2021-05-12 22:27 | disposition left against medical advice (07) ==
LOC: EDH 14:29
DX: R10.9 Unspecified abdominal pain (principal); Z53.21 Procedure and treatment not carried out due to patient leaving prior to being seen by health care provider
CPT/HCPCS: 36415; 80053; 83605; 83690; 85025

== ENCOUNTER 2021-06-03 18:14 | Inpatient (IN) | payer BC ==
[~2021-06-03] VITALS: Ht 175.3 cm; Wt 88.9 kg
[2021-06-03] MEDS ORDERED: ONDANSETRON 4MG INJ IVP ONE (19:30)
[2021-06-03] MEDS ORDERED: 0.9%NACL 1000ML 1,000 ML IV ONE (19:30)
[2021-06-03] MEDS ORDERED: MORPHINE 2 MG SYG IVP ONE (19:30)
[2021-06-03 19:46] LABS: BASOPHILS % (AUTO) 0.2 % (0.0-5.0); HEMATOCRIT 33.2 % (42-54); LYMPHOCYTES % (AUTO) 19.8 % (21.0-51.0); MEAN CORPUSCULAR HEMOGLOBIN 28.1 pg (27.0-33.0); MEAN CORPUSCULAR HGB CONC 32.2 g/dL (32.0-36.0); MEAN CORPUSCULAR VOLUME 87.1 fL (79-99); MONOCYTES % (AUTO) 7.5 % (3.0-13.0); NEUTROPHILS % (AUTO) 69.6 % (40.0-77.0); NUCLEATED RED BLOOD CELLS 0.2 % (0.0-0.19); PLATELET COUNT (AUTO) 549 K/uL (130-400); RED BLOOD CELL COUNT(AUTO) 3.81 MIL/uL (4.50-6.20); RED CELL DISTRIBUTION WIDTH 14.7 % (11.0-15.5); WHITE BLOOD COUNT (AUTO) 8.1 K/uL (4.8-10.8)
[2021-06-03 20:02] LABS: ALBUMIN 1.8 g/dL (3.5-5.0); BILIRUBIN,TOTAL 0.2 mg/dL (0.2-1.0)
[2021-06-03 20:05] LABS: POTASSIUM 2.9 mmol/L (3.5-5.1)
[2021-06-03] MEDS ORDERED: POTASSIUM BICARB/CIT AC 25 MEQ TABLET.EFF PO ONE (20:30)
[2021-06-03] MEDS ORDERED: FENTANYL CITRATE PF 50 MCG/1 ML 2ML VIAL IVP ONE (20:30)
[2021-06-03] MEDS ORDERED: ZOSYN 3.375GM +NS 50ML IV SCH (20:30)
[2021-06-03] MEDS ORDERED: POTASSIUM CHLORIDE 20MEQ/100ML 100 ML IV PRN (22:00)
[2021-06-03] MEDS ORDERED: LIDOCAINE HCL-MPF 1% 2ML VIAL IV PRN (22:00)
[2021-06-03] MEDS ORDERED: MORPHINE 2 MG SYG IV PRN (22:00)
[2021-06-03] MEDS ORDERED: FENTANYL CITRATE PF 50 MCG/1 ML 2ML VIAL ONE (22:59)
[2021-06-03] MEDS: LACTATED RINGERS 1000ML 1,000 ML IV SCH (23:14)
[2021-06-03 23:37] LABS: INR 1.12 (0.85-1.15); PROTHROMBIN TIME 12.1 SEC (9.6-11.6)
[2021-06-03 23:38] LABS: PARTIAL THROMBOPLASTIN TIME 24.3 SEC (26.3-35.5)
[2021-06-03] MEDS: SOLU-MEDROL 125MG VIAL IV SCH (23:59)
[2021-06-04 06:11] LABS: BASOPHILS % (AUTO) 0.2 % (0.0-5.0); EOSINOPHILS % (AUTO) 1.2 % (0.0-8.0); HEMATOCRIT 32.4 % (42-54); LYMPHOCYTES % (AUTO) 14.1 % (21.0-51.0); MEAN CORPUSCULAR HEMOGLOBIN 27.8 pg (27.0-33.0); MEAN CORPUSCULAR HGB CONC 31.8 g/dL (32.0-36.0); MEAN CORPUSCULAR VOLUME 87.6 fL (79-99); MONOCYTES % (AUTO) 2.7 % (3.0-13.0); NEUTROPHILS % (AUTO) 80.8 % (40.0-77.0); PLATELET COUNT (AUTO) 417 K/uL (130-400); RED CELL DISTRIBUTION WIDTH 14.8 % (11.0-15.5); WHITE BLOOD COUNT (AUTO) 4.1 K/uL (4.8-10.8)
[2021-06-04 06:26] LABS: CREATININE 0.8 mg/dL (0.5-1.5); MAGNESIUM 1.8 mg/dL (1.80-2.40); PHOSPHORUS 2.5 mg/dL (2.5-4.9); POTASSIUM 3.9 mmol/L (3.5-5.1)
[2021-06-04 06:57] LABS: APPEARANCE,URINE CLEAR (CLEAR); BILIRUBIN,URINE NEGATIVE (NEGATIVE); COLOR,URINE YELLOW (YELLOW); GLUCOSE, URINE (UA) NEGATIVE (NEGATIVE); KETONES,URINE NEGATIVE (NEGATIVE); LEUKOCYTE ESTERASE ,URINE NEGATIVE (NEGATIVE); NITRATE,URINE NEGATIVE (NEGATIVE); OCCULT BLOOD,URINE NEGATIVE (NEGATIVE); PROTEIN,URINE NEGATIVE (NEGATIVE); UROBILINOGEN,URINE 0.2 mg/dL (0.2-1.0)
[2021-06-04 07:04] LABS: AMPHET/METH SCREEN,URINE NEGATIVE (NEGATIVE); BARBITURATE SCREEN, URINE NEGATIVE (NEGATIVE); BENZODIAZEPINES SCREEN,URINE NEGATIVE (NEGATIVE); CANNABINOID SCREEN,URINE POSITIVE (NEGATIVE); COCAINE SCREEN,URINE NEGATIVE (NEGATIVE); OPIATE SCREEN,URINE NEGATIVE (NEGATIVE); PHENCYCLIDINE SCREEN,URINE NEGATIVE (NEGATIVE)
[2021-06-04 07:11] LABS: HEMOGLOBIN A1C 8.5 % (4.0-6.0)
[2021-06-04] MEDS: LACTATED RINGERS 1000ML 1,000 ML IV SCH ×2 (07:58→15:11)
[2021-06-04] MEDS: FAMOTIDINE 20MG VIAL IV SCH ×2 (08:53→19:50)
[2021-06-04 09:30] VITALS: BP 117/76
[2021-06-04] MEDS: SOLU-MEDROL 125MG VIAL IV SCH ×2 (09:30→20:25)
[2021-06-04] MEDS: MORPHINE 4 MG SYG IV PRN ×3 (10:46→19:50)
[2021-06-04 11:41] LABS: CREATININE 0.7 mg/dL (0.5-1.5); POTASSIUM 3.9 mmol/L (3.5-5.1)
[2021-06-04 12:00] VITALS: BP 131/85
[2021-06-04 16:00] VITALS: BP 149/82
[2021-06-04] MEDS ORDERED: LOPERAMIDE HCL 2 MG CAP PO PRN (16:30)
[2021-06-04] MEDS ORDERED: PREDNISONE 20 MG TABLET PO SCH (16:50)
[2021-06-04 17:37] LABS: CREATININE 0.8 mg/dL (0.5-1.5); POTASSIUM 3.8 mmol/L (3.5-5.1)
[2021-06-04 20:43] VITALS: BP 128/88
[2021-06-04] MEDS ORDERED: MESALAMINE 4 GM/60 ML BOTTLE RC SCH (21:00)
[2021-06-04 22:27] LABS: CREATININE 1.2 mg/dL (0.5-1.5); POTASSIUM 3.9 mmol/L (3.5-5.1)
[2021-06-05 01:10] VITALS: BP 116/83
[2021-06-05 03:46] VITALS: BP 129/79
[2021-06-05] MEDS: LACTATED RINGERS 1000ML 1,000 ML IV SCH (05:43)
[2021-06-05] MEDS ORDERED: DEXTROSE 50%-WATER 50 ML DISP.SYRIN IV PRN (06:00)
[2021-06-05] MEDS ORDERED: GLUCAGON 1MG KIT 1 MG ML IM PRN (06:00)
[2021-06-05] MEDS: INSULIN HUMULIN R 100 UNIT/ML 3ML SQ SCH ×2 (06:38→11:39)
[2021-06-05 07:20] VITALS: BP 116/83
[2021-06-05] MEDS: FAMOTIDINE 20MG VIAL IV SCH (07:42)
[2021-06-05] MEDS: SOLU-MEDROL 125MG VIAL IV SCH (07:43)
[2021-06-05] MEDS: MORPHINE 4 MG SYG IV PRN (07:51)
[2021-06-05] MEDS ORDERED: OXYMETAZOLINE HCL SPRAY 15 ML BOTTLE NS SCH (10:00)
[2021-06-05] MEDS ORDERED: TRAMADOL HCL 50 MG TABLET PO SCH (10:00)
[2021-06-05] MEDS ORDERED: HYDROXYZINE 25 MG TABLET PO SCH (10:00)
[2021-06-05] MEDS ORDERED: MESA1.2T PO (10:14)
[2021-06-05] MEDS ORDERED: PRED20TA3 PO (10:14)
[2021-06-05 11:15] VITALS: BP 134/87
[2021-06-05] MEDS ORDERED: METFORMIN HCL 500 MG TABLET PO SCH (17:00)
[2021-06-05] MEDS ORDERED: LISINOPRIL 20 MG TABLET PO SCH (21:00)
[2021-06-06] MEDS ORDERED: METOPROLOL SUCCINATE 50 MG TAB.SR.24H PO SCH (09:00)
[2021-06-06] MEDS ORDERED: PANTOPRAZOLE 40 MG TAB DR PO SCH (09:00)
== END 2021-06-05 12:45 | disposition home or self-care (01) | DRG 387 ==
LOC: EDH 18:14 → EDHIP 21:41 → 3BH 06-04 09:35
PROVIDERS: ADMIT Internal Medicine; ATTEND Internal Medicine
DX: K51.90 Ulcerative colitis, unspecified, without complications (principal); E87.6 Hypokalemia; E78.5 Hyperlipidemia, unspecified; Z20.822 Contact with and (suspected) exposure to COVID-19; K21.9 Gastro-esophageal reflux disease without esophagitis; E11.9 Type 2 diabetes mellitus without complications; I10 Essential (primary) hypertension; Z88.8 Allergy status to other drugs, medicaments and biological substances; Z91.041 Radiographic dye allergy status; Z87.891 Personal history of nicotine dependence; Z82.49 Family history of ischemic heart disease and other diseases of the circulatory system
CPT/HCPCS: 36415; 71045; 74176; 80048; 80053; 80305; 81003; 82948; 83036; 83690; 83735; 84100; 84484; 85025; 85610; 85730; 86140; 86850; 86900; 86901; 87507; 87635; 93005; C9803; G0378; J1815; J2270; J2405; J2930; J3010; J3490; J7120

== ENCOUNTER → 2024-02-17 | Outpatient (CLI) | payer BC ==
[~2024-02-17] MED LIST changes: -LEVO750T46 PO; +MESA1.2T PO; -METR500T PO; +OMEP20TA20 PO; -OMEP20TA25 PO; +PRED20TA3 PO
== END | disposition home or self-care (01) ==
LOC: RAH 12:30
PROVIDERS: ATTEND Nurse Practitioner Family
DX: M16.12 Unilateral primary osteoarthritis, left hip (principal)
CPT/HCPCS: 73721